=== PATIENT | male | born 1945 | race Caucasian/White ===

== ENCOUNTER 2017-07-01 15:09 | Emergency (ER) | payer MEDICARE ==
[~2017-07-01] VITALS: Ht 187.9 cm; Wt 99.3 kg
[~2017-07-01 15:09] MED LIST: ALLOPURINOL300 MG PO; ATIVAN1 MG PO; ATORVASTATIN CA20 M1 PO; CATAPRES-TTS 10.1 MG PO; CHLORDIAZEPOXID25 M1 PO; DIOVAN320 MG PO; K-PHOS500 MG PO; LEVAQUIN750 M1 PO; LEXAPRO20 MG PO; METAXALL800 MG PO; PREDNISONE10 MG PO; PRILOSEC20 M2 PO
[2017-07-01] MEDS ORDERED: TRAMADOL HCL50 MG PO (18:20)
== END 2017-07-01 18:26 | disposition home or self-care (01) ==
LOC: ED 15:09
DX: S22.41XA Multiple fractures of ribs, right side, initial encounter for closed fracture (principal); Z79.899 Other long term (current) drug therapy; W19.XXXA Unspecified fall, initial encounter; Y93.9 Activity, unspecified; Y92.9 Unspecified place or not applicable; Y99.9 Unspecified external cause status

== ENCOUNTER 2020-06-01 09:39 | Emergency (ER) | payer MEDICARE ==
[~2020-06-01] VITALS: Ht 187.9 cm; Wt 104.3 kg
[~2020-06-01 09:39] MED LIST changes: +TRAMADOL HCL50 MG PO
[2020-06-01 10:17] LABS: HEMATOCRIT 43.3 % (42.0-52.0); MEAN CELL VOLUME 99.8 fl (80.0-94.0); MEAN CORPUSCULAR HGB 34.8 pg (27.0-31.0); MEAN CORPUSCULAR HGB CONC 34.9 g/dl (33.0-37.0); MEAN PLATELET VOLUME 9.7 fl (9.6-12.3); PLATELET COUNT AUTOMATED 162 10*3/uL (130-400); RED BLOOD COUNT 4.34 10*6/uL (4.50-5.90); RED CELL DISTRI WIDTH 12.5 % (0-14.5); WHITE BLOOD COUNT 13.9 10*3/uL (4.8-10.8)
[2020-06-01 10:29] LABS: BUN 12 mg/dl (7-24); CHLORIDE 101 mmol/L (98-107); CREATININE 1.08 mg/dL (0.70-1.30); POTASSIUM 3.3 mmol/L (3.5-5.1); SODIUM 135 mmol/L (136-145); URIC ACID 9.8 mg/dL (3.5-7.2)
[2020-06-01 10:33] LABS: ETHYL ALCOHOL < 3.0 mg/dl (<3)
[2020-06-01 10:45] LABS: TROPONIN I < 0.015 ng/ml (<0.045)
[2020-06-01 10:52] LABS: PLATELET SUFFICIENCY NORMAL (NORMAL); TOTAL CELLS COUNTED 100 #CELLS
[2020-06-01 11:04] LABS: ACT PARTIAL THROMBO TIME 26.9 SECONDS (20.0-32.1)
[2020-06-01] MEDS ORDERED: MEDROL DOSEPAK4 MG PO (12:16)
[2020-06-01] MEDS ORDERED: TYLENOL325 M1 PO (12:16)
== END 2020-06-01 12:18 | disposition home or self-care (01) ==
LOC: ED 09:39
PROVIDERS: Emergency Medicine
DX: M10.9 Gout, unspecified (principal); R00.0 Tachycardia, unspecified; M79.671 Pain in right foot; M79.672 Pain in left foot; M25.561 Pain in right knee; M25.562 Pain in left knee; I10 Essential (primary) hypertension; Z79.899 Other long term (current) drug therapy

== ENCOUNTER 2020-09-12 15:14 | Inpatient (IN) | payer MEDICARE ==
[~2020-09-12] VITALS: Ht 187.9 cm; Wt 96.2 kg
[~2020-09-12 15:14] MED LIST changes: +MEDROL DOSEPAK4 MG PO; +TYLENOL325 M1 PO
[2020-09-12] MEDS ORDERED: TAMSULOSIN HCL0.4 MG PO (15:16)
[2020-09-12 15:21] VITALS: BP 141/93
[2020-09-12 16:12] LABS: BASO % 0.1 % (0.0-1.0); EOS % 0.1 % (1.0-4.0); HEMATOCRIT 43.7 % (42.0-52.0); LYMPH % 9.9 % (27.0-41.0); MEAN CELL VOLUME 104.5 fl (80.0-94.0); MEAN CORPUSCULAR HGB 34.2 pg (27.0-31.0); MEAN CORPUSCULAR HGB CONC 32.7 g/dl (33.0-37.0); MEAN PLATELET VOLUME 9.7 fl (9.6-12.3); MONO # 0.9 10*3/uL (0.1-1.0); MONO % 9.7 % (3.0-9.0); NEUT # 7.6 10*3/uL (2.3-7.9); NEUT % 79.8 % (47.0-73.0); PLATELET COUNT AUTOMATED 178 10*3/uL (130-400); RED BLOOD COUNT 4.18 10*6/uL (4.50-5.90); RED CELL DISTRI WIDTH 12.8 % (0-14.5); WHITE BLOOD COUNT 9.6 10*3/uL (4.8-10.8)
[2020-09-12 16:31] LABS: ALBUMIN 2.4 gm/dl (3.1-4.5); CREATININE 1.68 mg/dL (0.70-1.30)
[2020-09-12 16:42] VITALS: BP 132/96
[2020-09-12 19:50] VITALS: BP 145/88
[2020-09-12 23:52] LABS: BILIRUBIN Negative (Negative); BLOOD 1+ (Negative); CLARITY Turbid (Clear); COLOR Dark Yellow (Yellow); GLUCOSE Negative (Negative); KETONE Trace (Negative); LEUKO ESTERASE 3+ (Negative); NITRITE Negative (Negative)
[2020-09-13] VITALS: BP 133/83
[2020-09-13 00:02] LABS: BACTERIA 4+; WBC TNTC wbc/hpf (0-5)
[2020-09-13 00:40] LABS: ALBUMIN 2.1 gm/dl (3.1-4.5); ALKALINE PHOSPHATASE 77 U/L (45-117); BUN 55 mg/dl (7-24); CHLORIDE 106 mmol/L (98-107); CREATININE 1.35 mg/dL (0.70-1.30); POTASSIUM 3.7 mmol/L (3.5-5.1); SGOT/AST 57 IU/L (3-35); SGPT/ALT 22 U/L (12-78); SODIUM 139 mmol/L (136-145); TOTAL PROTEIN 6.2 gm/dL (6.4-8.2)
[2020-09-13 06:15] LABS: BASO % 0.2 % (0.0-1.0); HEMATOCRIT 37.1 % (42.0-52.0); LYMPH # 0.5 10*3/uL (1.3-4.4); LYMPH % 8.6 % (27.0-41.0); MEAN CELL VOLUME 104.8 fl (80.0-94.0); MEAN CORPUSCULAR HGB 34.2 pg (27.0-31.0); MEAN CORPUSCULAR HGB CONC 32.6 g/dl (33.0-37.0); MEAN PLATELET VOLUME 10.4 fl (9.6-12.3); MONO # 0.3 10*3/uL (0.1-1.0); MONO % 5.5 % (3.0-9.0); NEUT # 5.2 10*3/uL (2.3-7.9); NEUT % 85.4 % (47.0-73.0); PLATELET COUNT AUTOMATED 148 10*3/uL (130-400); RED BLOOD COUNT 3.54 10*6/uL (4.50-5.90); RED CELL DISTRI WIDTH 12.7 % (0-14.5); WHITE BLOOD COUNT 6.1 10*3/uL (4.8-10.8)
[2020-09-13 06:42] LABS: ALBUMIN 2.1 gm/dl (3.1-4.5); BUN 51 mg/dl (7-24); CHLORIDE 107 mmol/L (98-107); CREATININE 1.16 mg/dL (0.70-1.30); SGOT/AST 53 IU/L (3-35); SGPT/ALT 21 U/L (12-78); SODIUM 140 mmol/L (136-145); URIC ACID 9.5 mg/dL (3.5-7.2)
[2020-09-13 06:46] LABS: ALKALINE PHOSPHATASE 78 U/L (45-117); CPK 659 U/L (39-308)
[2020-09-13 08:00] VITALS: BP 144/64
[2020-09-13 12:00] VITALS: BP 135/85
[2020-09-13 16:00] VITALS: BP 141/74
[2020-09-13 20:00] VITALS: BP 164/84; BP 165/90
[2020-09-14] VITALS: BP 156/83
[2020-09-14 08:00] VITALS: BP 164/90
[2020-09-14 08:41] LABS: HEMATOCRIT 37.9 % (42.0-52.0); LYMPH % 14.3 % (27.0-41.0); MEAN CELL VOLUME 106.2 fl (80.0-94.0); MONO # 0.6 10*3/uL (0.1-1.0); MONO % 8.1 % (3.0-9.0); NEUT # 5.3 10*3/uL (2.3-7.9); PLATELET COUNT AUTOMATED 158 10*3/uL (130-400); RED BLOOD COUNT 3.57 10*6/uL (4.50-5.90); RED CELL DISTRI WIDTH 12.5 % (0-14.5); WHITE BLOOD COUNT 6.9 10*3/uL (4.8-10.8)
[2020-09-14 09:09] LABS: ALBUMIN 2.5 gm/dl (3.1-4.5); ALKALINE PHOSPHATASE 89 U/L (45-117); CHLORIDE 109 mmol/L (98-107); CREATININE 0.83 mg/dL (0.70-1.30); POTASSIUM 3.4 mmol/L (3.5-5.1); SGOT/AST 72 IU/L (3-35); SGPT/ALT 40 U/L (12-78); SODIUM 141 mmol/L (136-145); TOTAL PROTEIN 6.6 gm/dL (6.4-8.2)
[2020-09-14 09:15] LABS: BUN 36 mg/dl (7-24)
[2020-09-14 12:00] VITALS: BP 155/79
[2020-09-14 16:00] VITALS: BP 130/74
[2020-09-14 20:00] VITALS: BP 155/85
[2020-09-15] VITALS: BP 156/85
[2020-09-15 08:00] VITALS: BP 172/90
[2020-09-15] MEDS ORDERED: PREDNISONE10 MG PO (11:41)
[2020-09-15] MEDS ORDERED: ALLOPURINOL100 MG PO (11:41)
[2020-09-15] MEDS ORDERED: KEFLEX500 M1 PO (11:44)
== END 2020-09-15 12:20 | disposition home or self-care (01) | DRG 871 ==
LOC: ED 15:14 → EDHOLD 18:59 → 5E 18:59
PROVIDERS: Emergency Medicine; Internal Medicine; Student in an Organized Health Care Education/Training Program; ADMIT Internal Medicine; ATTEND Internal Medicine
DX: A41.9 Sepsis, unspecified organism (principal); E43 Unspecified severe protein-calorie malnutrition; N17.9 Acute kidney failure, unspecified; M62.82 Rhabdomyolysis; L03.313 Cellulitis of chest wall; N39.0 Urinary tract infection, site not specified; R65.20 Severe sepsis without septic shock; M10.9 Gout, unspecified; R73.9 Hyperglycemia, unspecified; D75.89 Other specified diseases of blood and blood-forming organs; I10 Essential (primary) hypertension; L98.499 Non-pressure chronic ulcer of skin of other sites with unspecified severity; I73.9 Peripheral vascular disease, unspecified; N40.0 Benign prostatic hyperplasia without lower urinary tract symptoms; L89.896 Pressure-induced deep tissue damage of other site; S80.212A Abrasion, left knee, initial encounter; S90.812A Abrasion, left foot, initial encounter; S90.811A Abrasion, right foot, initial encounter; S90.935A Unspecified superficial injury of left lesser toe(s), initial encounter; Z20.828 Contact with and (suspected) exposure to other viral communicable diseases; R55 Syncope and collapse; S90.934A Unspecified superficial injury of right lesser toe(s), initial encounter; S80.211A Abrasion, right knee, initial encounter; W18.30XA Fall on same level, unspecified, initial encounter; Y93.89 Activity, other specified; Y92.89 Other specified places as the place of occurrence of the external cause; Y99.8 Other external cause status; Z83.3 Family history of diabetes mellitus; Z79.899 Other long term (current) drug therapy; Z68.27 Body mass index [BMI] 27.0-27.9, adult

== ENCOUNTER 2021-03-02 18:49 | Observation (INO) | payer MEDICARE ==
[~2021-03-02] VITALS: Ht 187.9 cm; Wt 109.6 kg
[~2021-03-02 18:49] MED LIST changes: +ALLOPURINOL100 MG PO; +KEFLEX500 M1 PO; +TAMSULOSIN HCL0.4 MG PO
[2021-03-02 18:53] VITALS: BP 160/90
[2021-03-02 19:35] LABS: BASO % 0.4 % (0.0-1.0); EOS % 0.1 % (1.0-4.0); HEMATOCRIT 38.1 % (42.0-52.0); LYMPH # 1.6 10*3/uL (1.3-4.4); LYMPH % 17.2 % (27.0-41.0); MEAN CELL VOLUME 98.7 fl (80.0-94.0); MEAN CORPUSCULAR HGB 33.7 pg (27.0-31.0); MEAN CORPUSCULAR HGB CONC 34.1 g/dl (33.0-37.0); MEAN PLATELET VOLUME 9.7 fl (9.6-12.3); MONO # 1.2 10*3/uL (0.1-1.0); MONO % 12.6 % (3.0-9.0); NEUT # 6.5 10*3/uL (2.3-7.9); NEUT % 69.2 % (47.0-73.0); PLATELET COUNT AUTOMATED 210 10*3/uL (130-400); RED BLOOD COUNT 3.86 10*6/uL (4.50-5.90); RED CELL DISTRI WIDTH 12.2 % (0-14.5); WHITE BLOOD COUNT 9.4 10*3/uL (4.8-10.8)
[2021-03-02 19:50] LABS: ALBUMIN 2.7 gm/dl (3.1-4.5); ALKALINE PHOSPHATASE 82 U/L (45-117); BUN 19 mg/dl (7-24); CHLORIDE 105 mmol/L (98-107); CREATININE 0.96 mg/dL (0.70-1.30); POTASSIUM 4.2 mmol/L (3.5-5.1); SGOT/AST 19 IU/L (3-35); SGPT/ALT 14 U/L (12-78); SODIUM 136 mmol/L (136-145); TOTAL PROTEIN 7.2 gm/dL (6.4-8.2); URIC ACID 8.7 mg/dL (3.5-7.2)
[2021-03-02 21:19] VITALS: BP 162/98
[2021-03-02 23:15] VITALS: BP 173/96
[2021-03-03] VITALS: BP 173/96
[2021-03-03 06:02] LABS: BASO % 0.1 % (0.0-1.0); HEMATOCRIT 40.2 % (42.0-52.0); LYMPH # 1.2 10*3/uL (1.3-4.4); LYMPH % 15.7 % (27.0-41.0); MEAN CORPUSCULAR HGB 33.7 pg (27.0-31.0); MEAN CORPUSCULAR HGB CONC 34.1 g/dl (33.0-37.0); MONO # 0.2 10*3/uL (0.1-1.0); NEUT # 6.2 10*3/uL (2.3-7.9); NEUT % 80.7 % (47.0-73.0); PLATELET COUNT AUTOMATED 211 10*3/uL (130-400); RED BLOOD COUNT 4.06 10*6/uL (4.50-5.90); RED CELL DISTRI WIDTH 11.9 % (0-14.5); WHITE BLOOD COUNT 7.7 10*3/uL (4.8-10.8)
[2021-03-03 06:06] LABS: ALBUMIN 2.6 gm/dl (3.1-4.5); ALKALINE PHOSPHATASE 79 U/L (45-117); BUN 21 mg/dl (7-24); CHLORIDE 102 mmol/L (98-107); CREATININE 0.86 mg/dL (0.70-1.30); POTASSIUM 4.6 mmol/L (3.5-5.1); SGOT/AST 11 IU/L (3-35); SGPT/ALT 13 U/L (12-78); SODIUM 135 mmol/L (136-145)
[2021-03-03] MEDS ORDERED: PREDNISONE10 MG PO (11:23)
[2021-03-03 12:00] VITALS: BP 169/70
== END 2021-03-03 13:33 | disposition home or self-care (01) ==
LOC: ED 18:49 → EDHOLD 20:52 → 4E 22:23 → 5E 22:32
PROVIDERS: Emergency Medicine; Internal Medicine; ADMIT Internal Medicine; ATTEND Internal Medicine
DX: R26.2 Difficulty in walking, not elsewhere classified (principal); M10.9 Gout, unspecified; I10 Essential (primary) hypertension; D64.9 Anemia, unspecified; N40.0 Benign prostatic hyperplasia without lower urinary tract symptoms; E87.1 Hypo-osmolality and hyponatremia; R73.9 Hyperglycemia, unspecified; R00.0 Tachycardia, unspecified; E43 Unspecified severe protein-calorie malnutrition

== ENCOUNTER → 2021-05-25 | Outpatient (CLI) | payer MEDICARE | END | disposition home or self-care (01) | LOC: COVID19 10:35 | PROVIDERS: ATTEND Ophthalmology | DX: Z01.812 Encounter for preprocedural laboratory examination (principal); Z20.822 Contact with and (suspected) exposure to COVID-19 ==

== ENCOUNTER → 2021-05-30 | Day surgery (SDC) | payer MEDICARE ==
[~2021-05-30] VITALS: Ht 187.9 cm; Wt 102.1 kg
[2021-05-30 07:15] VITALS: BP 170/65
[2021-05-30 08:38] VITALS: BP 137/85
[2021-05-30 08:53] VITALS: BP 144/76
[2021-05-30 09:07] VITALS: BP 130/75
== END | disposition home or self-care (01) ==
LOC: SDC 05-25 11:30
PROVIDERS: ATTEND Ophthalmology
DX: H25.812 Combined forms of age-related cataract, left eye (principal); F41.9 Anxiety disorder, unspecified; M10.9 Gout, unspecified

== ENCOUNTER → 2021-06-22 | Outpatient (CLI) | payer MEDICARE | END | disposition home or self-care (01) | LOC: LAB 13:34 | PROVIDERS: ATTEND Ophthalmology | DX: Z01.812 Encounter for preprocedural laboratory examination (principal); Z20.822 Contact with and (suspected) exposure to COVID-19 ==

== ENCOUNTER → 2021-06-27 | Day surgery (SDC) | payer MEDICARE ==
[~2021-06-27] VITALS: Ht 157.4 cm; Wt 102.1 kg
[2021-06-27 08:40] VITALS: BP 151/76
[2021-06-27 10:32] VITALS: BP 170/98
[2021-06-27 10:48] VITALS: BP 149/91
[2021-06-27 11:02] VITALS: BP 165/50
== END | disposition home or self-care (01) ==
LOC: SDC 06-22 13:30
PROVIDERS: ATTEND Ophthalmology
DX: H25.811 Combined forms of age-related cataract, right eye (principal); F41.9 Anxiety disorder, unspecified; M10.9 Gout, unspecified; Z79.899 Other long term (current) drug therapy; Z98.890 Other specified postprocedural states

== ENCOUNTER 2022-12-06 09:37 | Emergency (ER) | payer MEDICARE ==
[~2022-12-06] VITALS: Wt 114.8 kg
[~2022-12-06 09:37] MED LIST changes: +HYDROCODONE-AC1 EAC1 PO; +OMNICEF300 MG PO; +PHARMASSURE V500 MCG PO; +PREDNISONE20 M1 PO; +ZESTORETIC 20-1 EACH PO
[2022-12-06 10:09] LABS: HEMATOCRIT 44.7 % (42.0-52.0); MEAN CELL VOLUME 102.5 fl (80.0-94.0); MEAN CORPUSCULAR HGB 33.7 pg (27.0-31.0); MEAN CORPUSCULAR HGB CONC 32.9 g/dl (33.0-37.0); MEAN PLATELET VOLUME 10.1 fl (9.6-12.3); PLATELET COUNT AUTOMATED 359 10*3/uL (130-400); RED BLOOD COUNT 4.36 10*6/uL (4.50-5.90); RED CELL DISTRI WIDTH 12.4 % (0-14.5); WHITE BLOOD COUNT 12.5 10*3/uL (4.8-10.8)
[2022-12-06 10:10] LABS: MANUAL DIFF REFLEX YES
[2022-12-06 10:21] LABS: ACT PARTIAL THROMBO TIME 23.9 SECONDS (20.0-32.1)
[2022-12-06 10:31] LABS: PLATELET SUFFICIENCY NORMAL (NORMAL); POLYCHROMASIA SLIGHT; TOTAL CELLS COUNTED 100 #CELLS
[2022-12-06 11:01] LABS: ALKALINE PHOSPHATASE 100 U/L (46-116); BUN 26 mg/dl (9-23); CHLORIDE 104 mmol/L (98-107); LIPASE 46 U/L (12-53); POTASSIUM 4.5 mmol/L (3.4-5.1); SGPT/ALT 59 U/L (10-49); TOTAL PROTEIN 6.6 gm/dL (6.0-8.0)
[2022-12-06 12:03] LABS: BILIRUBIN Negative (Negative); BLOOD Negative (Negative); CLARITY Clear (Clear); COLOR Yellow (Yellow); GLUCOSE Negative (Negative); KETONE Negative (Negative); LEUKO ESTERASE 1+ (Negative); NITRITE Negative (Negative); SPECIFIC GRAVITY 1.015 (1.001-1.030); UROBILINOGEN 0.2 E.U./dl (0.0-1.0)
== END 2022-12-06 15:21 ==
LOC: ED 09:37
PROVIDERS: Emergency Medicine
DX: R53.1 Weakness (principal); Z20.822 Contact with and (suspected) exposure to COVID-19; R26.2 Difficulty in walking, not elsewhere classified

== ENCOUNTER 2022-12-24 12:50 | Emergency (ER) | payer MEDICARE ==
[~2022-12-24] VITALS: Ht 187.9 cm; Wt 104.3 kg
[2022-12-24 14:41] LABS: BASO % 0.3 % (0.0-1.0); EOS # 0.1 10*3/uL (0.0-0.4); EOS % 2.3 % (1.0-4.0); HEMATOCRIT 32.3 % (42.0-52.0); LYMPH # 1.2 10*3/uL (1.3-4.4); LYMPH % 19.1 % (27.0-41.0); MEAN CELL VOLUME 98.8 fl (80.0-94.0); MEAN CORPUSCULAR HGB CONC 33.4 g/dl (33.0-37.0); MEAN PLATELET VOLUME 9.3 fl (9.6-12.3); MONO # 0.7 10*3/uL (0.1-1.0); MONO % 11.3 % (3.0-9.0); NEUT % 66.2 % (47.0-73.0); PLATELET COUNT AUTOMATED 239 10*3/uL (130-400); RED BLOOD COUNT 3.27 10*6/uL (4.50-5.90); RED CELL DISTRI WIDTH 12.1 % (0-14.5)
[2022-12-24 15:01] LABS: ACT PARTIAL THROMBO TIME 30.7 SECONDS (20.0-32.1)
[2022-12-24 15:02] LABS: ALKALINE PHOSPHATASE 85 U/L (46-116); BUN 22 mg/dl (9-23); CHLORIDE 97 mmol/L (98-107); LIPASE 28 U/L (12-53); POTASSIUM 4.5 mmol/L (3.4-5.1); SGPT/ALT 39 U/L (10-49); TOTAL PROTEIN 6.2 gm/dL (6.0-8.0)
[2022-12-24] MEDS ORDERED: XARELTO20 M1 PO (17:15)
[2022-12-24] MEDS ORDERED: XARELTO15 M1 PO (17:15)
== END 2022-12-24 18:05 ==
LOC: ED 12:50
PROVIDERS: Emergency Medicine
DX: I82.453 Acute embolism and thrombosis of peroneal vein, bilateral (principal); Z90.49 Acquired absence of other specified parts of digestive tract; Z98.890 Other specified postprocedural states